=== PATIENT | female | born 1955 | race African-American/Black ===

== ENCOUNTER 2019-04-05 08:42 | Emergency (ER) | payer MEDICAID ==
[~2019-04-05] VITALS: Ht 162.6 cm; Wt 73.0 kg
[~2019-04-05 08:42] MED LIST: SOMA; VICODIN
[2019-04-05] MEDS ORDERED: TETRACAINE 0.5% OPHTH DROPS 4ML OP ONE (11:00)
[2019-04-05] MEDS ORDERED: FLUORESCEIN SODIUM 1MG/STRIP OP ONE (11:00)
[2019-04-05 11:17] LABS: BASOPHILS % 0.5 % (0.0-2.0); EOSINOPHILS % 0.1 % (0.0-5.0); HEMATOCRIT. 38.3 % (36.0-48.0); LYMPHOCYTES % 17.7 % (20.0-50.0); MEAN CORPUSCULAR HEMOGLOBIN 32.8 pg (28.0-32.0); MEAN CORPUSCULAR VOLUME 96.5 fL (81.0-99.0); MEAN PLATELET VOLUME 7.9 fl (7.4-10.4); MONOCYTES % 4.9 % (2.0-8.0); NEUTROPHILS % 76.8 % (40.0-76.0); PLATELET 399 x1000/uL (130-400); RED BLOOD CELL COUNT 3.97 mill/uL (4.2-5.4); RED CELL DISTRIBUTION WIDTH 13.6 % (11.6-14.6)
[2019-04-05 11:25] LABS: CHLORIDE 105 mEq/L (98-107); PROTHROMBIN TIME 10.6 sec (9.6-11.0)
[2019-04-05] MEDS ORDERED: POTASSIUM CHLORIDE 20MEQ TABLET SR PO ONE (13:45)
[2019-04-05] MEDS ORDERED: CLONIDINE 0.1MG TABLET PO ONE (19:45)
[2019-04-05 22:21] VITALS: BP 142/93
== END 2019-04-05 22:21 | disposition left against medical advice (07) ==
LOC: ER 08:42
DX: H54.61 Unqualified visual loss, right eye, normal vision left eye (principal); E87.6 Hypokalemia; I10 Essential (primary) hypertension; M19.90 Unspecified osteoarthritis, unspecified site; F17.210 Nicotine dependence, cigarettes, uncomplicated; Z88.0 Allergy status to penicillin; Z90.710 Acquired absence of both cervix and uterus; Z90.89 Acquired absence of other organs
CPT/HCPCS: 36415; 80048; 99284